=== PATIENT | female | born 1975 | race Caucasian/White ===

== ENCOUNTER 2022-10-17 15:16 | Outpatient (REF) | payer OTHER, SELFPAY ==
[2022-10-22 03:18] LABS: HPV mRNA E6/E7 rflx Not Detected (Not Detected)
== END 2022-10-17 15:17 | disposition home or self-care (01) ==
LOC: HO.LNP 15:16
PROVIDERS: PCP Family Medicine; Visit Provider Obstetrics & Gynecology
DX: Z01.419 Encounter for gynecological examination (general) (routine) without abnormal findings (principal)
CPT/HCPCS: 87624; 88142

== ENCOUNTER 2022-11-14 13:03 | Outpatient (REF) | payer OTHER, SELFPAY ==
--- NOTE | ~2022-11-14 | MM_ITS ---
EXAMINATION: MM SCREENING DIGITAL BREAST TOMOSYNTHESIS, BILATERAL CLINICAL INFORMATION: Screening. Asymptomatic. Age 47. No prior breast imaging. The lifetime risk of breast cancer based on the Tyrer-Cuzick Model is 13%. COMPARISON: None (current study represents initial baseline exam). TECHNIQUE: Digital breast tomosynthesis is performed in both the craniocaudal and mediolateral oblique views along with computer-aided detection (CAD). Synthesized 2D images are generated from the tomosynthesis. Additional left CC view is provided. FINDINGS: There are scattered areas of fibroglandular density (ACR BI-RADS breast composition Category b). Right breast shows no significant mass or architectural abnormality. Neither breast shows abnormal calcifications. The bilateral axilla and skin contours are unremarkable. Subtle fibronodular pattern is noted central anterior and posterior upper outer left breast. As this represents initial baseline exam, patient will be recalled for additional views to fully characterize baseline appearance. MM/MM tomosynthesis screening BI IMPRESSION: Left: -Fibronodular pattern central anterior and posterior upper outer breast. Right: -No mammographic evidence of malignancy. ASSESSMENT: BI-RADS 0: Incomplete - Need Additional Imaging Evaluation RECOMMENDATION: 1. Additional views of the left breast for 2 areas (spot CC, spot ML). 2. Targeted ultrasound if warranted after review of the additional views. 3. Radiology department staff will contact the patient for additional imaging. This patient's information was entered into a reminder system with a target due date for their next mammogram.
== END 2022-11-14 13:04 | disposition home or self-care (01) ==
LOC: HO.MAMMO 13:03
PROVIDERS: Visit Provider Obstetrics & Gynecology
DX: Z12.31 Encounter for screening mammogram for malignant neoplasm of breast (principal)
CPT/HCPCS: 77063; 77067

== ENCOUNTER 2022-12-05 10:55 | Outpatient (REF) | payer OTHER, SELFPAY ==
--- NOTE | ~2022-12-05 | MM_ITS ---
EXAMINATION: MM DIAGNOSTIC DIGITAL BREAST TOMOSYNTHESIS, LEFT CLINICAL INFORMATION: Recall from baseline screening for fibronodular asymmetries central anterior posterior upper outer left breast. COMPARISON: Mammography: 11/14/2022 (baseline). TECHNIQUE: Digital breast tomosynthesis is performed. 2D images are generated from the tomosynthesis. The following views are obtained: Spot CC, spot ML FINDINGS: There are scattered areas of fibroglandular density (ACR BI-RADS breast composition Category b). The additional views show no underlying mass or architectural abnormality. Fibroglandular densities are unremarkable. Results are discussed with the patient at time of visit. MM/MM tomosynthesis added views L IMPRESSION: No mammographic evidence of malignancy. ASSESSMENT: BI-RADS 2: Benign RECOMMENDATION: Routine annual mammography screening. This patient's information was entered into a reminder system with a target due date for their next mammogram.
== END 2022-12-05 10:56 | disposition home or self-care (01) ==
LOC: HO.MAMMO 10:55
PROVIDERS: PCP Internal Medicine; Visit Provider Internal Medicine
DX: R92.2 Inconclusive mammogram (principal)
CPT/HCPCS: 77061; 77065

== ENCOUNTER 2023-04-24 09:20 | Outpatient (AMB) | payer OTHER, SELFPAY ==
--- NOTE | 2023-04-24 09:23 | MHC.PC.OV ---
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 She was a patient of Dr. Ernesto Fitzgerald and was last evaluated and had blood work done 20 years. She is not on prescription medications. No acute symptoms. She has been smoking 10 cigarettes daily for the past 10 years. She states that she smokes to deal with work stressors. She gets anxious when she does not smoke. She smoked for 20 years and quit smoking from 2002 to 2012. She notes that her mother was a smoke and 3 years ago from stroke. She had h/o multiple strokes. She notes that she had a mammogram and pap pap smear test 6 months ago: both were normal. Denies family h/o colon cancer. 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 1. Little interest or pleasure in doing things: not at all 2. Feeling down, depressed, or hopeless: several days 3. Trouble falling or staying asleep, or sleeping too much: not at all 4. Feeling tired or having little energy: not at all 5. Poor appetite or overeating: not at all 6. Feeling bad about yourself - or that you are a failure or have let yourself or your family down: not at all 7. Trouble concentrating on things, such as reading the newspaper or watching television: several days 8. Moving or speaking so slowly that other people could have noticed. Or the opposite - being so fidgety or restless that you have been moving around a lot more than usual: not at all 9. Thoughts that you would be better off or of hurting yourself in some way: not at all Total score: 2 Depression Screening Interpretation: Negative 83618 - PHQ-9 Billing: Yes Source: Developed by Drs. Christos Chapin, Yadira Gaston, Dustin Montalvo and colleagues, with an educational alondra from [employer]. Thrive Questionnaire Date Thrive assessed: 04/24/23 I am a: Patient What is your living situation today?: I have a steady place to live Within the past 12 months, did the food you bought not last and you didn't have the money to get more?: Never true Do you have trouble paying for medicines?: No Do you have trouble getting transportation to medical appointments?: No Do you have trouble paying your heating and electricity bill?: No Do you have trouble taking care of your child, family member or friend?: No Do you have trouble with day-to-day activities such as bathing, preparing meals, shopping, managing finances, etc.?: No Are you currently unemployed and looking for a job?: No Are you interested in more education?: No Please select the resources that you would like help with: None Currently or been in a relationship where the following occur: no concerns reported AUDIT C Alcohol Use Questionnaire (AUDIT-C) 1. How often do you have a drink containing alcohol?: 2-4 times a month 3. How often do you have six or more drinks on one occasion?: Never Total Score: 2 REX-7 AMB Questionnaire REX-7 Date REX - 7 assessed: 04/24/23 Feeling nervous, anxious, or on edge: 1 = Several days Not being able to stop or control worryin = Several days Worrying too much about different things: 1 = Several days Trouble relaxin = Several days Being so restless that it is hard to sit still: 0 = Not at all Becoming easily annoyed or irritable: 1 = Several days Feeling afraid as if something awful might happen: 1 = Several days Total REX-7 score (0-4 normal; 5-9 mild; 10-14 moderate; 15-21 severe): 6 Source: Developed by Drs. Christos Chapin, Yadira Gaston, Dustin Montalvo and colleagues, with an educational alondra from [employer]. REX-7 Assessment Billing REX-7 Assessment Tool: REX-7 Assessment 21161 Review of Systems Const Details: Denies chills, Denies fatigue, Denies fever(s), Denies headache(s) and Denies weakness HEENT Denies change in vision, Denies dizziness, Denies headache(s), Denies hearing loss, Denies nasal congestion, Denies sinus pain, Denies sinus pressure and Denies sore throat Card Denies chest pain, Denies lightheadedness, Denies dyspnea and Denies other (palpitations) Resp Denies cough, Denies dyspnea and Denies wheezing GI Denies abdominal pain, Denies melena, Denies hematochezia, Denies change in bowel habits, Denies dyspepsia and Denies nausea Denies hematuria and Denies dysuria Musc Denies abnormal gait, Denies myalgias, Denies arthralgias, Denies numbness and Denies tingling Skin/Breast Denies rash, Denies unusual bruising and Denies wounds Neuro Denies abnormal gait, Denies dizziness, Denies headache(s), Denies memory loss, Denies numbness, Denies Sensory deficit (Neuro), Denies tingling and Denies weakness Psych Denies anxiety, Denies depression and Denies memory loss Endo Denies cold intolerance, Denies fatigue, Denies heat intolerance, Denies polydipsia and Denies polyuria Rob/Lymph Denies easy bleeding and Denies easy bruising Aller/Immun Denies wheezing Physical exam (Primary Care) Vital Signs: Last Vital Signs Pulse 86 04/24/23 09:27 BP 112/70 04/24/23 09:27 Pulse Ox 98 04/24/23 09:27 BMI result Body Mass Index 29.9 Tobacco/Smoking Status: Tobacco use Status Tobacco use date assessed 04/24/23 04/24/23 09:25 Patient Tobacco Use Status Current everyday Tobacco 04/24/23 09:25 e-Cigarette/Vaping Use Never Used 04/24/23 09:34 PHQ-9: PHQ-9 Score PHQ-9: Total score 2 04/24/23 09:50 Depression Screening Interpretation: Negative Thrive Assessment: Date of Thrive Assessment Date Thrive assessed 04/24/23 04/24/23 09:34 Currently or been in a relationship where the following occur: no concerns reported Const Other: General: no acute distress, well developed, alert and awake Nutritional Appearance: well nourished Orientation/consciousness: patient oriented x3 HENMT Head: Yes normocephalic and Yes atraumatic Ears: hearing grossly normal bilaterally and TM's normal bilaterally General nose exam: Normal external nose present and Normal nares present Mouth: Normal oral and palatal mucosa present and moist mucous membranes Teeth and gingiva: dentition normal Throat: Yes oropharynx normal Eyes Pupils: Equal, round and reactive pupils present and Pupil accommodation reflex normal EOM: EOMs intact bilaterally Neck Neck: Yes normal visual inspection, Yes no lymphadenopathy and Yes trachea midline Thyroid: Thyroid normal Carotids: no bruits Lymphatic: no lymphadenopathy noted Chest Chest palpation & inspection: normal inspection of the chest Resp Effort & Inspection: normal respiratory effort Auscultation: clear to auscultation bilaterally Cardio Rate: regular rate Rhythm: regular rhythm Heart sounds: S1 normal heart sound present, S2 normal heart sound present, no gallops, no murmurs and no rubs Bruits: no abdominal aortic bruits and no carotid bruits GI Palpation (GI): No Abdominal aortic bruit present, Soft to palpation, nontender, No hepatosplenomegaly present and No Rebound tenderness present Auscultation: normal bowel sounds General: Yes no CVA tenderness Back/Spine/Pelvis Back: no CVA tenderness Cervical Spine: cervical ROM normal and No Cervical spine tenderness Thoracic/Lumbar Spine: thoraco-lumbar ROM normal, No pain with thoraco-lumbar ROM, No thoracic spinal tenderness and No lumbar spinal tenderness Skin General: warm and dry. Normal skin color. Normal skin turgor Lesions: no lesions Rashes: no rashes Trauma: no lacerations or abrasions Wounds: no wounds Nails: normal Neuro General: patient oriented x3, gait normal and CN's II-XI intact bilaterally Cranial nerves: Yes Equal, round and reactive pupils present Cognition (Neuro): normal cognition Gait exam (Neuro): Normal gait present Motor exam (neuro): 5/5 motor strength present throughout Sensory Exam: No Sensory deficit (Neuro) Deep tendon reflexes (DTR's): Right patellar reflex intensity grade: 2+ and Left patellar reflex intensity grade: 2+ Extrem General: Yes normal to inspection, No edema and No calf tenderness Psych Appearance: grossly normal Affect: normal affect Attitude: cooperative Thought process: Normal thought process present Assessment and Plan Assessment & Plan (1) Normal physical examination, routine: Code(s): Z00.00 - Encounter for general adult medical examination without abnormal findings Plan: No significant physical restrictions or limitations noted Advised to follow-up in 1 month for labs review and smoking cessation counseling Return sooner with concerns or worsening symptoms Verbalized understanding and agreed with treatment plan. (2) Smoking: Code(s): F17.200 - Nicotine dependence, unspecified, uncomplicated Plan: She has been smoking 10 cigarettes daily for the past 10 years. She states that she smokes to deal with work stressors. She gets anxious when she does not smoke. Smoking cessation encouraged Wellbutrin ordered. Take as prescribed Follow-up in 1 month or return sooner with concerns or worsening symptoms Verbalized understanding and agreed with treatment plan. (3) Laboratory tests ordered as part of a complete physical exam (CPE): Code(s): Z00.00 - Encounter for general adult medical examination without abnormal findings Plan: Fasting labs ordered as part of a complete physical exam. Advised to fast for at least 10 hours before getting labs drawn. May drink water Verbalized understanding and agreed with treatment plan. Orders: Orders Comprehensive Galva. Panel Fast Today Z00.00 - Encounter for general adult medical examination without abnormal findings Lipid Panel Today Z00.00 - Encounter for general adult medical examination without abnormal findings TSH reflex Free T4 Today Z00.00 - Encounter for general adult medical examination without abnormal findings Complete Blood Count Auto Diff Today Z00.00 - Encounter for general adult medical examination without abnormal findings UA CC w/rflx Micro + Cult Today Z00.00 - Encounter for general adult medical examination without abnormal findings Medications: New bupropion HCl Take 150 mg/day for 3 days, then 150 mg twice a day 150 mg PO BID 60 tabs 3RF 30 days Coding Level of Care Code New Pt Prev Care 40-64y(13914) Diagnoses Normal physical examination, routine Z00.00 Smoking F17.200 Laboratory tests ordered as part of a complete physical exam (CPE) Z00.00 Additional Codes REX-7 Assessment Billing - REX-7 Assessment Tool: REX-7 Assessment [id number] ([id number])
[2023-04-24 09:27] VITALS: BP 112/70; PULSE 86; O2SAT 98; BMI 29.9
== END 2023-04-24 09:57 | disposition home or self-care (01) ==
PROVIDERS: PCP Internal Medicine; Visit Provider Nurse Practitioner Family
DX: Z00.00 Encounter for general adult medical examination without abnormal findings (principal); F17.210 Nicotine dependence, cigarettes, uncomplicated
CPT/HCPCS: 99386

== ENCOUNTER 2023-04-24 09:59 | Outpatient (REF) | payer OTHER, SELFPAY ==
[2023-04-24 11:30] LABS: MANUAL DIFF FLAG NO
[2023-04-24 11:38] LABS: Basophils Percent Auto 0.4 % (0-2); Hematocrit 41.3 % (37.0-47.0); Hemoglobin 13.1 g/dl (12.0-16.0); Imm Gran Abs Auto 0.03 X10*3/uL (0.00-0.03); Imm Gran Pct Auto 0.4 % (0.0-0.4); Lymphocytes Absolute Auto 1.5 X10*3/uL (1.2-4.9); Lymphocytes Percent Auto 17.9 % (20-40); Mean Corpuscular HGB Conc 31.7 g/dl (31.0-35.0); Mean Corpuscular Hemoglobin 28.7 pg (27.0-33.0); Mean Corpuscular Volume 90.4 fL (80.0-98.0); Mean Platelet Volume 9.5 fL (9.4-12.3); Monocytes Absolute Auto 0.5 X10*3/uL (0.1-1.2); Monocytes Percent Auto 5.8 % (2-11); Neutrophils Absolute Auto 6.1 x10*3/uL (2.0-8.3); Neutrophils Percent Auto 75.5 % (45-73); Platelet Count 259 X10*3/uL (160-400); Red Blood Count 4.57 X10*6/uL (4.20-5.50); Red Cell Distribution Width 16.6 % (11.0-16.0); White Blood Count 8.1 X10*3/uL (4.8-10.8)
[2023-04-24 12:59] LABS: Alanine Aminotransferase 13 U/L (0-31); Albumin Level 3.9 g/dL (3.5-5.0); Alkaline Phosphatase 69 U/L (39-117); Anion Gap 12 (12-20); Aspartate Amino Transferase 15 U/L (5-31); Bilirubin Total 0.2 mg/dL (0.0-1.0); Blood Urea Nitrogen 9 mg/dL (9-16); Calcium 8.6 mg/dL (8.4-10.2); Carbon Dioxide 24 mmol/L (22-29); Chloride 110 mmol/L (96-108); Cholesterol 195 mg/dL; Estimated Glomerular Filt Rate > 60; Glucose Fasting 99 mg/dL (60-99); HDL Cholesterol 54 mg/dL; LDL Cholesterol Calculated 118 mg/dl; Potassium 4.2 mmol/L (3.3-5.1); Sodium 142 mmol/L (135-145); Total Protein 6.9 g/dL (6.5-8.0); Triglycerides 116 mg/dL
[2023-04-24 13:08] LABS: Appearance Urine Cloudy; Color Urine Yellow; Glucose Urine UA Negative (Negative); Leukocyte Esterase Urine Moderate (2+) (Negative); Nitrite Urine Negative (Negative); PH 5.5 (5.0-9.0); Specific Gravity - Urine 1.025 (1.005-1.025); UMIC TRIGGER UACC YES; Urine Blood Negative (Negative); Urine Ketones Trace mg/dL (Negative); Urine Protein Trace mg/dL (Neg-Trace)
[2023-04-24 13:22] LABS: Bacteria Urine 4+ (None Seen); Hyaline Casts Urine 0-2 /LPF (0-2); UACC Culture Trigger YES
== END 2023-04-24 10:00 | disposition home or self-care (01) ==
LOC: HO.WFDLDS 09:59
PROVIDERS: Visit Provider Nurse Practitioner Family
DX: Z00.00 Encounter for general adult medical examination without abnormal findings (principal); R82.90 Unspecified abnormal findings in urine
CPT/HCPCS: 36415; 80053; 80061; 81001; 81003; 84443; 85025; 87086

== ENCOUNTER 2023-06-26 11:03 | Outpatient (AMB) | payer OTHER, SELFPAY ==
--- NOTE | 2023-06-26 11:09 | MHC.PC.OV ---
Vital Signs 06/26/23 11:10 Height 5 ft 7 in Weight 188 lb 6 oz BMI 29.5 BP 128/84 Blood Pressure Location Rt brachial Position Sitting Respiration 12 Pulse 97 Pulse Source Pulse Oximeter Temp 97.1 F Temp Source Temporal Artery Scan Pulse Oximetry (%) 99 Oxygen Delivery Method Room Air Intake Visit Reasons: 1 mos labs review, smoking Developer [employer] Upholstering Required: No Accompanied by: Self / Same As Patient Allergies No Known Allergies Allergy (Verified 06/26/23 11:24) Medication List - Last Reconciled 06/26/23 by Horacio An CNP bupropion HCl 150 mg PO BID 30 days Tobacco use date assessed: 04/24/23 Dental Screening Dental Screen Date: 06/26/23 Did you have a dental visit in the last 12 months?: Yes Did you have a dental problem in the last 6 months where you did not have access to dental care?: No Was dental information given to patient?: Patient has dentist HPI HPI Comments History of Present Illness Details 48-year-old female presents for smoking cessation and labs review follow-up. She established care in late April. Routine labs were ordered and Wellbutrin was prescribed for cigarette smoking. She notes she has been taking the medication as prescribed. She states she cut down to 5-7 cigarettes daily from 10 daily. She reports feeling of anxiousness at times. She admits to exercising routinely. She denies acute symptoms at this time. 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 Christos Chapin, Yadira Gaston, Dustin Montalvo and colleagues, with an educational alondra from [employer]. Review of Systems Const Details: Const Denies chills, Denies fatigue, Denies fever(s), Denies headache(s) and Denies weakness ENT Denies dizziness and Denies headache(s) Card Denies chest pain, Denies lightheadedness, Denies dyspnea and Denies other (Palpitations) Resp Denies cough, Denies dyspnea, Denies wheezing and Denies other ( shortness of breath) GI Denies abdominal pain, Denies melena, Denies hematochezia, Denies change in bowel habits, Denies dyspepsia and Denies nausea Denies hematuria and Denies dysuria Musc Denies abnormal gait, Denies myalgias, Denies arthralgias, Denies numbness and Denies tingling Skin/Breast Denies rash, Denies unusual bruising and Denies wounds Neuro Denies abnormal gait, Denies dizziness, Denies headache(s), Denies memory loss, Denies numbness, Denies Sensory deficit (Neuro), Denies tingling and Denies weakness Psych Denies anxiety, Denies depression, Denies memory loss Endo Denies cold intolerance, Denies fatigue, Denies heat intolerance, Denies polydipsia and Denies polyuria Aller/Immun Denies wheezing Physical exam (Primary Care) Vital Signs: Last Vital Signs Temp 97.1 F 06/26/23 11:10 Pulse 97 06/26/23 11:10 Resp 12 06/26/23 11:10 BP 128/84 06/26/23 11:10 Pulse Ox 99 06/26/23 11:10 Oxygen Delivery Method Room Air 06/26/23 11:10 BMI result Body Mass Index 29.5 Tobacco/Smoking Status: Tobacco use Status Tobacco use date assessed 04/24/23 06/26/23 11:15 Patient Tobacco Use Status Current everyday Tobacco 06/26/23 11:15 e-Cigarette/Vaping Use Never Used 06/26/23 11:15 Thrive Assessment: Date of Thrive Assessment Date Thrive assessed 04/24/23 06/26/23 11:15 Const Other: General: no acute distress and well developed Nutritional Appearance: well nourished Orientation/consciousness: patient oriented x3 [facility] Head: Yes normocephalic and Yes atraumatic Eyes General: appearance normal, both eyes and all related structures Pupils: Equal, round and reactive pupils present EOM: EOMs intact bilaterally Resp Effort & Inspection: normal respiratory effort Auscultation: clear to auscultation bilaterally Cardio Rate: regular rate Rhythm: regular rhythm Heart sounds: S1 normal heart sound present, S2 normal heart sound present, no gallops, no murmurs and no rubs GI Palpation (GI): No Abdominal aortic bruit present, Soft to palpation, nontender, No hepatosplenomegaly present and No Rebound tenderness present Auscultation: normal bowel sounds General: Yes no CVA tenderness Back/Spine/Pelvis Back: no CVA tenderness Cervical Spine: cervical ROM normal and No Cervical spine tenderness Thoracic/Lumbar Spine: thoraco-lumbar ROM normal, No pain with thoraco-lumbar ROM, No thoracic spinal tenderness and No lumbar spinal tenderness Extrem General: Yes normal to inspection, No edema and No calf tenderness Skin General: warm and dry. Normal skin color. Normal skin turgor Lesions: no lesions Rashes: no rashes Trauma: no lacerations or abrasions Wounds: no wounds Nails: normal Neuro General: patient oriented x3, gait normal and no focal neuro deficit Cranial nerves: Yes Equal, round and reactive pupils present Cognition (Neuro): normal cognition Gait exam (Neuro): Normal gait present Sensory Exam: No Sensory deficit (Neuro) Psych Appearance: grossly normal Affect: normal affect Attitude: cooperative Thought process: Normal thought process present Assessment and Plan Assessment & Plan (1) Smoking: Code(s): F17.200 - Nicotine dependence, unspecified, uncomplicated Plan: She states she cut down to 5-7 cigarettes daily from 10 daily She reports feeling of anxiousness at times. This likely due to withdrawal symptoms from reduced cigarette smoking. Advised to continue to take Wellbutrin as prescribed. Routine exercise encouraged. Return in 6 weeks or return sooner with worsening or new symptoms. Verbalized understanding and agreed with treatment plan. Recent labs results reviewed with the patient; unremarkable finding. Coding Level of Care Code Est Pt Level 2 (47423) Diagnoses Smoking F17.200
[2023-06-26 11:10] VITALS: BP 128/84; PULSE 97; RESP 12; TEMP 36.2; O2SAT 99; BMI 29.5
== END 2023-06-26 11:38 | disposition home or self-care (01) ==
PROVIDERS: PCP Nurse Practitioner Family; Visit Provider Nurse Practitioner Family
DX: F17.200 Nicotine dependence, unspecified, uncomplicated (principal)
CPT/HCPCS: 99212

== ENCOUNTER 2023-12-25 12:07 | Outpatient (REF) | payer OTHER, SELFPAY ==
--- NOTE | ~2023-12-25 | XR_ITS ---
EXAMINATION: X-RAY KNEE, LEFT X-RAY STANDING AP BOTH KNEES CLINICAL INFORMATION: Pain. COMPARISON: None available. TECHNIQUE: 2 views of the left knee. AP standing view of both knees. FINDINGS: No fracture or subluxation. Mild joint space narrowing in the medial compartment of both knees. No osseous erosions. No chondrocalcinosis. No joint effusion in the left knee. XR/XR knee LT 3V IMPRESSION: 1. No acute fractures or malalignment. 2. 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
== END 2023-12-25 12:08 | disposition home or self-care (01) ==
LOC: HO.HOSX 12:07
PROVIDERS: Visit Provider Orthopaedic Surgery
DX: M23.92 Unspecified internal derangement of left knee (principal)
CPT/HCPCS: 73562

== ENCOUNTER 2023-12-25 13:43 | Outpatient (AMB) | payer OTHER, SELFPAY ==
--- NOTE | 2023-12-25 14:09 | MHC.OFFVIS ---
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 Patient reports that she injured the left knee about 5-7 years ago. While training for a half marathon she was running when she felt a pop on the medial aspect of the knee. She has instability when preforming activities such as running hiking and long distance walking. Her pain starts at the medial aspect for the knee and radiates laterally and up the thigh. Pain is better with rest, elevation, ice/ heat application. 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 Patient reports that she injured the left knee about 5-7 years ago. While training for a half marathon she was running when she felt a pop on the medial aspect of the knee. She has instability when preforming activities such as running hiking and long distance walking. Her pain starts at the medial aspect for the knee and radiates laterally and up the thigh. Pain is better with rest, elevation, ice/ heat application. SHe has tried extensive PT and NSAIDs. She would like to be able to engage in exercise but can't secondary to pain. 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 Current occupational exposures/hazards: No Sexual orientation: Straight/Heterosexual Gender identity: Female Cognitive needs: No Hearing needs: No Vision needs: Yes Female Reproductive History Menstrual Age of Menarche: 13 Physical Exam Vital Signs: BMI result Body Mass Index 29.4 Const General: cooperative, healthy appearing, no acute distress, well developed and alert HEENT Head: Yes normal to inspection, Yes normocephalic and Yes atraumatic Mouth: moist mucous membranes Eyes General: appearance normal, both eyes and all related structures EOM: EOMs intact bilaterally Chest Other: no audible wheezing. Resp Other: No audible wheezing Effort & Inspection: normal respiratory effort Back/Spine/Pelvis Cervical Spine: normal cervical lordosis Skin General skin exam: no rashes or lesions noted Neuro General: no focal motor deficits Extrem Other: Full ROM 1+ Valgus instability Stable Muriel's No effusion Medial joint line pain with hyper-flexion and + medial Steinmen's Psych Appearance: grossly normal and well kempt Mental Status: mental status grossly normal Speech and movement: Normal speech and movement present Affect: normal affect Attitude: cooperative Results Reviewed Results Reviewed: I personally reviewed relevant radiographs. Left knee radiographs are unremarkable Assessment & Plan Assessment & Plan (1) Internal derangement of left knee: Code(s): M23.92 - Unspecified internal derangement of left knee Plan: This is an active and healthy 48 yo F with long-standing left knee pain and inability to engage in any exercise. When she does she feels instability and medial sided pain. I recommend MRI to assess as she has tried extensve PT and NSAIDs. Orders: Orders XR knee standing BI 12/25/23 M25.569 - Pain in unspecified knee MR knee LT wo con 12/25/23 M23.92 - Unspecified internal derangement of left knee Coding Level of Care Code New Pt Level 4 (17235) Diagnoses Internal derangement of left knee M23.92
[2023-12-25 14:10] VITALS: BMI 29.4
== END 2023-12-25 14:28 | disposition home or self-care (01) ==
PROVIDERS: PCP Nurse Practitioner Family; Visit Provider Orthopaedic Surgery
DX: M23.92 Unspecified internal derangement of left knee (principal)
CPT/HCPCS: 99203

== ENCOUNTER 2024-01-22 17:07 | Outpatient (REF) | payer OTHER, SELFPAY ==
--- NOTE | ~2024-01-22 | MR_ITS ---
EXAMINATION: MR KNEE WITHOUT CONTRAST, LEFT CLINICAL INFORMATION: Left knee pain. Internal derangement. COMPARISON: Left knee radiographs dated 12/25/2023. TECHNIQUE: MRI of the knee without contrast was performed using routine sequences on a high-field scanner. FINDINGS: MENISCI: Medial Meniscus: Intact. Lateral Meniscus: Intact. LIGAMENTS: Cruciate: Intact. Collateral: Intact. EXTENSOR MECHANISM: Intact quadriceps and patellar tendons. Normal patellofemoral alignment. ARTICULAR CARTILAGE/BONE: Patellofemoral Compartment: Lateral patellar facet articular cartilage signal heterogeneity with inferior full-thickness fissuring and minimal subchondral cystic change. Central trochlea signal heterogeneity with focal delamination measuring up to 0.6 cm in ML dimension. Tiny marginal osteophytes. Medial Compartment: Intact articular cartilage. Lateral Compartment: Focal lateral tibial plateau articular cartilage fissuring with minimal subchondral cystic change. JOINT FLUID AND BURSAE: Trace joint effusion. Posterior synovial recess versus ganglion cyst adjacent to the distal aspect of the posterior cruciate ligament measuring up to 0.5 x 1.7 x 2.0 cm. MR/MR knee LT wo con IMPRESSION: 1. No acute meniscal or ligamentous injury. 2. Mild patellofemoral and minimal lateral compartment osteoarthritis. Trace joint effusion. 3. Posterior synovial recess versus ganglion cyst adjacent to the distal aspect of the posterior cruciate ligament measuring up to 2.0 cm.
== END 2024-01-22 17:08 | disposition home or self-care (01) ==
LOC: HO.MRI 17:07
PROVIDERS: PCP Nurse Practitioner Family; Visit Provider Orthopaedic Surgery
DX: M23.92 Unspecified internal derangement of left knee (principal)
CPT/HCPCS: 73721

== ENCOUNTER 2024-02-12 12:25 | Outpatient (AMB) | payer OTHER, SELFPAY ==
--- NOTE | 2024-02-12 12:50 | MHC.OFFVIS ---
Intake Visit Reasons: OV - Left Knee MRI Review Intake Note: Bonnie is a 49 year old female who presents today for an MRI follow up of her right knee MR/MR knee LT wo con IMPRESSION: 1. No acute meniscal or ligamentous injury. 2. Mild patellofemoral and minimal lateral compartment osteoarthritis. Trace joint effusion. 3. Posterior synovial recess versus ganglion cyst adjacent to the distal aspect of the posterior cruciate ligament measuring up to 2.0 cm. Allergies No Known Allergies Allergy (Verified 12/25/23 14:12) HPI HPI OV - Left Knee MRI Review: Details: Bonnie is a 49 year old female who presents today for an MRI follow up of her right knee. 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 MR/MR knee LT wo con IMPRESSION: 1. No acute meniscal or ligamentous injury. 2. Mild patellofemoral and minimal lateral compartment osteoarthritis. Trace joint effusion. 3. Posterior synovial recess versus ganglion cyst adjacent to the distal aspect of the posterior cruciate ligament measuring up to 2.0 cm. Assessment & Plan Assessment & Plan (1) Iliotibial band syndrome affecting left lower leg: Code(s): M76.32 - Iliotibial band syndrome, left leg Category: Medical Plan: ITB syndrome PT Orders: Orders PT Evaluation and Treatment Today M76.32 - Iliotibial band syndrome, left leg Coding Level of Care Code Est Pt Level 3 (56665) Diagnoses Iliotibial band syndrome affecting left lower leg M76.32
== END 2024-02-12 14:02 | disposition home or self-care (01) ==
PROVIDERS: PCP Nurse Practitioner Family; Visit Provider Orthopaedic Surgery
DX: M76.32 Iliotibial band syndrome, left leg (principal)
CPT/HCPCS: 99213

== ENCOUNTER → 2024-02-12 12:25 | Outpatient (BNVA) | payer OTHER, SELFPAY | PROVIDERS: PCP Nurse Practitioner Family; Visit Provider Orthopaedic Surgery ==

== ENCOUNTER 2024-03-28 13:56 | Outpatient (RCR) | payer OTHER, SELFPAY ==
--- NOTE | 2024-03-28 16:46 | MHC.PT.EP ---
[facility] [place] Office [place] Office [place] Office [address] Janette Coleman [address] [phone] F: [phone] F: [phone] F: [phone] F: [phone] Physical Therapy Plan of Care Date of Evaluation: 03/28/24 Date of Surgery: Diagnosis: ILIOTIBIAL BAND SYNDROME, LEFT Assessment: 49 YO FEMALE REF TO PT FOR LEFT ITB SYNDROME, PROGRESSIVE x 10 YRS. THE Pt NOTES SHE HAS BEEN UNABLE TO RUN TO ASSIST W HER WEIGHT MGMT AND DEPRESSION. OBJECTIVELY, THE Pt HAS TIGHTNESS IN GEORGETTE PIRIFORMIS MM, Lt ITB-> LATERAL RETINACULUM, (+)PF SXS Lt, DECR LUMBOPELVIC/PROX LEs STRENGTH AND STABILITY, (-) Lt KNEE INSTABILITY, AND ALTERED GAIT PATTERN. FUNCTIONALLY, THE Pt HAS Lt KNEE SXS W ECCENTRIC DEMANDS W HIKING, RUNNING, OR SL LEFT IN BED. SHE IS A GOOD PT CANDIDATE TO ADDRESS THE ABOVE , DEV A HEP, AND GUIDE Pt IN ADVANCING TOWARD HER GOAL OF RETURNING TO RUNNING. Frequency and Duration: The patient will be seen 1-2 X WK x 5 WKS Short Term Goals: DECREASE Lt KNEE AND HIP PAIN INITIATE HEP -> CORE / LUMBOPELVIC STABILIZATION IMPROVE Lt PATELLAR MOB IMPROVE GEORGETTE HIP ROTAT FLEX AND STRENGTH Intermediate Goals: INDEP HEP AND SELF SX MGMT TECHN Pt IMPROVE STRENGTH (ECCENTRIC) AND STABILITY IN LUMBOPELVIC/PROX LEs-> ALLOWING FOR RETURN TO RUNNING PROGRAM Pt DEMON WFL SQUAT TECHN AND FORM LEFT LE SLS x 14 SEC Treatment Plan: Modalities to reduce pain, spasms and effusion. Manual therapy to restore motion and function. Therapeutic exercise to improve strength and flexibility. Neuromuscular re-education for posture and balance. Therapeutic activities to return to functional activities of daily living. Electronically signed by: LUBA OLIVEIRA,PT Please sign and return to therapist. Thank you for your referral.
--- NOTE | 2024-05-03 08:49 | MHC.PT.DC ---
[facility] [place] Office [place] Office [place] Office [address] Janette Coleman [address] [phone] F: [phone] F: [phone] F: [phone] F: [phone] Physical Therapy Discharge Report Diagnosis: ILIOTIBIAL BAND SYNDROME, LEFT Date of Surgery: Date of Evaluation: 03/28/24 Date of Discharge: 05/03/24 Treatments to Date: 1 Cancellations to Date: 0 No Shows to Date: 0 Discharge Status: Patient Elected to Stop Discharge Summary: NAVI WAS POTENTIALLY A VERY GOOD PT CANDIDATE- SHE ATTENDED HER PT EVAL ON 03/28/24 AND A HEP WAS INITIATED, Pt WAS EDUC RE AND IN AGREEMENT WITH THE PT POC AND TREATMENT WAS INITIATED. SHE PHONED THE PT DEPT LATER THAT WEEK AND CANCELLED HER PT APPTS STATING SHE HAS A LOT GOING ON AT HOME. THE Pt THEREFORE DID NOT MEET HER PT GOALS AND IS DISCHRGED THIS DATE FROM PT. Electronically signed by: LUBA OLIVEIRA,PT Please sign and return to therapist. Thank you for your referral.
== END 2024-05-03 08:50 | disposition home or self-care (01) ==
LOC: HO.PT 13:56
PROVIDERS: Visit Provider Orthopaedic Surgery
DX: M76.32 Iliotibial band syndrome, left leg (principal)
CPT/HCPCS: 97110; 97140; 97162